=== PATIENT | female | born 1960 | race Caucasian/White ===

== ENCOUNTER 2019-02-28 12:06 | Emergency (ER) | payer OTHER ==
[~2019-02-28] VITALS: Ht 157.5 cm; Wt 76.2 kg
== END 2019-02-28 22:00 | disposition home or self-care (01) ==
LOC: ER 12:06 → CPU-OBS 12:09 → ER 12:09
DX: R07.89 Other chest pain (principal)
CPT/HCPCS: G0378; G0379; 93005